=== PATIENT | female | born 1980 | race Caucasian/White ===

== ENCOUNTER → 2019-11-06 10:47 | Outpatient (CLI) | payer BC, SELFPAY ==
[2019-11-06 11:35] LABS: Basophils # 0.1 K/mm3 (0-0.2); Basophils % 0.7 % (0.1-2.0); Eosinophils # 0.2 K/mm3 (0.0-0.4); Eosinophils % 2.2 % (0.1-12.0); Hematocrit 41.1 % (37.0-47.0); Hemoglobin 13.5 g/dL (12.2-16.2); Lymphocytes # 3.1 K/mm3 (0.7-4.5); Lymphocytes % 29.1 % (10-50); Mean Platelet Volume 7.8 fl (7.4-10.4); Monocytes # 0.5 K/mm3 (0.1-1.0); Monocytes % 4.6 % (1.7-9.3); Neutrophils # 6.7 K/mm3 (1.8-7.8); Neutrophils % 63.3 % (37.0-80.0); Platelet Count 411 K/mm3 (142-424); Red Blood Count 4.37 M/mm3 (4.20-5.40); Red Cell Distribution Width 12.8 % (11.5-17.5); White Blood Count 10.6 K/mm3 (4.8-10.8)
[2019-11-06 11:52] LABS: Amphetamine/Metha Screen,Urine Negative ng/ml (<1000); Barbiturates Screen,Urine Negative ng/ml (<200)
[2019-11-06 11:53] LABS: Benzodiazepines Screen,Urine Negative ng/ml (<200)
[2019-11-06 11:54] LABS: Cannabinoid Screen,Urine Negative ng/ml (<50)
[2019-11-06 11:55] LABS: Cocaine Screen,Urine Negative ng/ml (<300); Methadone Screen,Urine Negative ng/ml (<300)
[2019-11-06 11:56] LABS: Opiate Screen,Urine Negative ng/ml (<300); Phencyclidine Screen,Urine Negative ng/ml (<25)
[2019-11-06 12:15] LABS: Alanine Aminotransferase 18 U/L (12-78); Albumin Level 4.9 g/dl (3.5-5.0); Albumin/Globulin Ratio 1.8 (1.1-1.8); Alkaline Phosphatase 56 U/L (38-126); Anion Gap 12.5 mEq/L (5-15); Aspartate Amino Transferase 28 U/L (14-36); Bilirubin,Total 0.3 mg/dl (0.2-1.3); Blood Urea Nitrogen 10 mg/dl (7-17); Carbon Dioxide 30 mmol/L (22.0-30.0); Chloride 102 mmol/L (98-107); Estimated Glomerular Filt Rate 138 ml/min (>60); GFR (African American) 167 ML/MIN (>60); Globulin 2.7 g/dL (1.3-3.2); Glucose 90 mg/dl (74-100); Potassium 4.5 mmoL/L (3.5-5.1); Sodium 140 mmol/L (136-145); Total Protein,Serum 7.6 g/dl (6.3-8.2)
[2019-11-06 12:26] LABS: Coronavirus 19 IgG Antibody Negative (Negative); Coronavirus 19 IgM Antibody Negative (Negative)
[2019-11-06 12:29] LABS: HCG Qualitative, Serum Negative (Negative)
== END ==
PROVIDERS: Visit Provider Obstetrics & Gynecology
DX: Z01.818 Encounter for other preprocedural examination (principal)
CPT/HCPCS: 36415; 80053; 80305; 84703; 85025; 86328

== ENCOUNTER 2019-11-09 06:59 | Inpatient (IN) | payer BC, SELFPAY ==
[2019-11-06 14:34] VITALS: BMI 22.1
[2019-11-09] VITALS (22 sets, daily range): BP systolic 98–143; BP diastolic 48–93; PULSE 64–94; RESP 16–20; TEMP 36.4–43; O2SAT 94–100
--- NOTE | 2019-11-09 09:35 | P.PN_ITS ---
[facility] Anesthesia Checklist - Patient Identification Patient Identification: Arm Band - Structural Data Admitted From: Home Planned Operative Procedure/s: Total Abdominal Hysterectomy Consent for Planned Operative Procedure(s) Verified: Yes Verified Documents: Surgical Consent, History and Physical - NPO Status Verified Time NPO: 00:00 - Additional verifications Anesthesia Reactions: No Hx Blood Transfusions: No Blood Transfusion Reaction: No - Airway Assessment C-Spine Mobility Assessed: Yes (mp2) TMJ Mobility Assessed: Yes Dentition: Good Dentition (upper dentures removed) - Neurological Assessment Level of Consciousness: Awake, Alert - Anesthesia Plan Anesthesia Risk discussed: Yes Anesthesia Plan: Verified ASA Class: II Anesthesia Type: General w/block (TAP block. Risks/benefits explained to pt preoperatively. Pt verbalizes understanding) [facility] History I have reviewed the patient's past medical history: Yes Medical History: Reports:: Cancer (skin) Denies:: Diabetes Mellitus Type 1, Diabetes Mellitus Type 2, Internal Pacemaker, MRSA, Seizures *Have you ever received a pneumonia vaccine?: No *Have you received a flu vaccine this season?: Yes Other Medical History: Denies: Blood Transfusion Reaction Anesthesia experience/problems:: nac Other Surgeries: Yes: , Hernia Repair, Other. No: Pacemaker Amputation: No Fractures: No - *Social History Last grade of school completed: Advanced degree Smoking Status: Current every day smoker Tobacco Type: cigarettes # Packs/Day (cigarettes): 1 Alcohol Intake: never Substance Use Type: denies use *Occupational Status:: employed Housing: house Household Members: spouse, family *Travel in the last 8 weeks: None Family Hx:: Cancer, Thyroid Disorder
--- NOTE | 2019-11-09 10:39 | HMH.PHAINT ---
HOME MEDICATION RECONCILIATION COMPLETED BY CALLING [facility].
--- NOTE | 2019-11-09 11:37 | HMH.ANESI ---
[facility] Anesthesia Record Part I Intake, IV Amount: 1,800 Estimated blood loss (mL): 150 Urine output (mL): 275 Blood Pressure: 126/84 SaO2: 94 Pulse Rate: 90 Respiratory Rate: 16 Temperature: 97.5 F Patient is:: Drowsy, Stable Stable to PACU at:: 11:20
--- NOTE | 2019-11-09 11:58 | HMH.OPNOTE ---
Date of procedure: 11/09/19 Pre-op Diagnosis:: heavy menstrual bleeding DUB pelvic pain ovarian cyst Post-op Diagnosis:: same Procedure performed:: CLARISA, RSO, HOOD Surgeon:: Alicia Rubio MD Model Maker(s):: Nissa Mccauley MRI ASSISTANT:: Tha Rosenberg Anesthesia: GETA Estimated blood loss (mL): 150 Operative findings:: dense pelvic adhesions, grossly normal ovaries bilaterally Operative note:: The patient was taken to the operating room and general anesthesia was administered without difficulty. She was prepped and draped in the supine position. A Pfannenstiel skin incision was made approximately 2 cm above the pubic symphysis with a scalpel and carried down to the underlying layer of fascia. The fascia was incised in the midline and extended laterally sharply. The rectus muscles were sharply dissected off the fascia and in the midline. The peritoneum was turned and sharply, with good visualization of the underlying structures. The peritoneal incision was extended bluntly. A survey of the patient's pelvis and abdomen revealed dense pelvic adhesions with the bladder adhesed correction up the anterior uterus. Both ovaries appeared grossly normal. At this time, the patient was placed in Trendelenburg and a Arcadio retractor was placed in the abdomen; the bowel was packed with moist laparotomy sponges. A double tooth tenaculum was placed on the uterine fundus and the uterus was elevated out of the pelvis. No fibroids or other visible uterine lesions were noted. The round ligaments were identified and transected and suture-ligated. The anterior lip of the broad ligament was dissected medially on both sides; bladder adhesions were dense and it took 20 minutes of sharp and blunt dissection to dissect the bladder off the uterus. The posterior leaf of the broad ligament was dissected until the ureters were able to be identified on either side and noted to be free of the forthcoming adnexal pedicles. Infundibulopelvic ligaments were doubly clamped transected and suture ligated on either side, with excellent hemostasis noted; the clamp on the patient's right was placed lateral to the ovary so that the ovary and fallopian tube could be removed, at patient request. The uterine arteries were skeletonized on either side, and were clamped, transected and suture ligated with excellent hemostasis. The bladder flap was further bluntly dissected off the lower uterine segment with excellent hemostasis and without injury to the bladder. The cardinal and uterosacral ligaments were clamped transected and suture ligated on both sides until the vaginal mucosa was entered. The vaginal incision was extended circumferentially with the Jorganson scissors; the uterus and cervix were removed abdominally and sent for pathology, along with the fallopian tubes. The vaginal cuff angles were closed 0 Vicryl [id number] sutures and were transfixed to the ipsilateral cardinal and uterosacral ligaments. The remainder of the vaginal cuff was closed with 0 Vicryl interrupted sutures. The pelvis was copiously irrigated with a solution of sterile water. The cuff was hemostatic. All pedicles were reexamined and remained hemostatic. All instruments were removed from the patient's abdomen. The peritoneum was closed with 2-0 Vicryl in a running fashion. The fascia was closed with 0 Vicryl in a running fashion. The skin was closed with rita. The patient tolerated the procedure well; sponge/lap/needle and instrument counts were correct ?2. She was taken to the recovery room awake in stable condition. Estimated blood loss: 150 cc. Condition: stable Disposition: PACU Specimens:: uterus, cervix, right fallopian tube and ovary Complications:: none
--- NOTE | 2019-11-09 12:15 | PC.NURSE ---
Report received from Nissa Musa RN in PACU at 1147, pt to department at 1155. Bed locked and in lowest position with side rails up x2, call light given to pt and instructed on use. at bedside at 1200, pt dozing but is c/o lower abdominal pain. RN returned to bedside at 1215 for VS check, pt sleeping soundly with resps even and unlabored. Will continue to monitor.
--- NOTE | 2019-11-09 12:37 | SUR.OPER ---
Procedure ended at 1103, patient received TAP block from anesthesia, left room at 1119, immediately after patient transferred to her bed. No complications.
--- NOTE | 2019-11-09 13:29 | P.CONPHA_ITS ---
[facility] Pharmacy VTE Monitoring - Patient Demographics Admission date: 11/09/19 Report Date: 11/09/19 Time: 13:29 Allergies/Adverse Reactions: Patient Allergies No Known Allergies Allergy (Verified 11/09/19 07:08) Height: 1.6 m Weight: 56.699 kg Patient Problems: Current Active Problems Pelvic adhesions (Acute) Bulky or enlarged uterus (Acute) History of tubal ligation (Acute) Previous section (Acute) Tobacco abuse (Acute) Ovarian cyst (Acute) Fibroid, uterine (Acute) Dyspareunia in female (Acute) Pelvic pain (Acute) Heavy menstrual bleeding (Acute) - VTE Risk Was VTE Risk Assessment Performed: Yes VTE Score: 2 VTE Risk Level: Very Low Risk Clinical Trial Participant: No - Prophylaxis VTE Prophylaxis Ordered?: Yes Types of VTE Prophylaxis: IPCS Knee High (postop) Location of Applied Device: Bilateral Lower Extremeties
[2019-11-09 14:28] LABS: Microscopic,Cath URINE MICROSCOPIC (MICROSCOPIC)
[2019-11-09 15:11] LABS: Appearance,Urine/Cath CLEAR (Clear); Bilirubin,Cath Negative (Negative); Blood, Urine/Cath TRACE-L (Negative); Color,Urine/Cath YELLOW (Yellow); Glucose,Urine/Cath (UA) Negative (Negative); Ketones,Urine/Cath Negative (Negative); Leukocyte Esterase,Cath Negative (Negative); Nitrate,Cath Negative (Negative); Protein,Urine/Cath Negative (Negative); Specific Gravity, Urine/Cath <= 1.005 (1.005-1.030); Urobilinogen,Cath 0.2 EU/dl (0.2)
--- NOTE | 2019-11-09 15:23 | PC.NURSE ---
Pt medicated with dilaudid 2mg IV at 1451 for c/o lower abdominal and lower back pain, jello also provided to pt at that time as requested and repositioned to left tilt for comfort. Pt reported increasing comfort from reposition and tolerated jello well. RN at bedside at 1521 for pain reassessment, pt sleeping soundly with resps even and unlabored, at bedside.
[2019-11-09 15:25] LABS: Squamous Epithelial Ur./Cath Occasional #/hpf (0-5); WBC,Urine/Cath Occasional #/hpf (0-3)
--- NOTE | 2019-11-09 16:57 | PC.NURSE ---
RN reassessment completed at 1645. Pt is S/P CLARISA with RSO, has rested in intervals throughout the shift. Pt c/o gas pain at this time, spoke with Dr. Rubio on the telephone and gave simethicone 160 mg PO as ordered. Abd soft and mildly tender with BS active in all quads. LTV dressing with scant amount of serosang drainage, no change from initial assessment. F/C patent and draining clear, yellow urine at bedside. Approx 250 ml of UOP noted at this time. Pt reports tolerating clear liquid diet well without any nausea. Pt has received PRN pain medication x1 since being in the department and was asleep at time of pain reassessment, reports at this time that medication is helping. IV patent and infusing without difficulty. No vaginal bleeding noted. at bedside for support, no needs/concerns voiced.
[2019-11-10] VITALS (8 sets, daily range): BP systolic 91–130; BP diastolic 41–86; PULSE 63–89; RESP 18; TEMP 36.4–37.2; O2SAT 95–98
--- NOTE | 2019-11-10 04:56 | PC.NURSE ---
Reassessment completed. Heart at RRR, Lungs CTA. BS present x4 quadrants. No edema noted. Dressing noted to have small amount of drainage. Dressing removed, site cleansed with 1/2 sterile water, 1/2 peroxide solution. [place] remain intact, site appears WNL. New telfa and tegaderm in place. Pt. reports pain at 8/10, 2MG dilaudid given see [employer] EMAR. Pt. tolerated well. F/C emptied, noted to have 1500ml of clear yellow urine. Pt. denies passing flatus. Jello provided per pt. request. Pt. denies further needs, will continue to monitor.
[2019-11-10 05:42] LABS: Hemoglobin 8.8 g/dL (12.2-16.2)
[2019-11-10 05:44] LABS: Chloride 104 mmol/L (98-107); Potassium 3.7 mmoL/L (3.5-5.1); Sodium 135 mmol/L (136-145)
[2019-11-10 05:47] LABS: Blood Urea Nitrogen 5 mg/dl (7-17); Creatinine Clearance Estimated 171 mL/min (50-200); Estimated Glomerular Filt Rate 179 ml/min (>60); GFR (African American) 216 ML/MIN (>60)
[2019-11-10 05:48] LABS: Anion Gap 7.7 mEq/L (5-15); Calcium 8.4 mg/dl (8.4-10.2); Carbon Dioxide 27 mmol/L (22.0-30.0); Glucose 147 mg/dl (74-100)
--- NOTE | 2019-11-10 05:59 | PC.NURSE ---
Spoke with Dr. 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
--- NOTE | 2019-11-10 07:20 | PC.NURSE ---
ASSESSMENT PERFORMED AT THIS TIME. PATIENT IS A/O X4. WU CATH STILL PRESENT, WILL REMOVE LATER THIS AM. SCUDS BLE. IV INFUSING WITHOUT DIFFICULTY. MEDICATED PER MAR FOR PAIN. NO CURRENT NEEDS VOICED TO NURSE.
--- NOTE | 2019-11-10 08:20 | PC.NURSE ---
PATIENT SITTING UP EATING BREAKFAST. STATES SHE WILL CALL OUT WHEN SHE IS DONE SO WE CAN REMOVE WU. NO CURRENT NEEDS. AT BEDSIDE
--- NOTE | 2019-11-10 08:41 | PC.NURSE ---
AT BEDSIDE. REPORT GIVEN. ORDERS TO START 5MG-10MG PO OXYCODONE EVERY 4 HOURS PRN. ORDERS R/V
--- NOTE | 2019-11-10 09:30 | PC.NURSE ---
dressing change performed at this time. education provided. pt tolerated well. small amount of serosang. drainage more toward the left side. rita intact and no redness. sterile telfa/tegaderm reapplied.
--- NOTE | 2019-11-10 09:42 | P.PN_ITS ---
[facility] Anesthesia Record Part II Discharge Time: 11:50 Destination: Obstetric PACU nurse assessment reviewed?: Yes Patient Condition:: Good Anesthesia Complications:: None Swallowing reflex intact?: Yes Cyanosis?: No Blood Pressure: 130/86 Pulse Rate: 89 Temperature: 97.5 F Mental Status: Alert & Oriented Pain level:: 0 Nausea and/or vomitting:: None Intake, IV Amount: 0
--- NOTE | 2019-11-10 10:42 | PC.NURSE ---
patient able to urinate. States pain is a little better, reports gas pains. will re-check patients pain in 5-10 mins. at bedside.
--- NOTE | 2019-11-10 10:56 | PC.NURSE ---
PATIENT CRYING IN PAIN. STATES HURTS WHEN SHE BREATHES. WILL GIVE IV PAIN MEDS PER ORDER.
--- NOTE | 2019-11-10 12:15 | PC.NURSE ---
SPOKE WITH DR. HUI ABOUT PATIENTS PAIN AND REQUEST FOR SUPPOSITORY. MD GAVE ORDERS FOR GLYCERIN SUPP, AND DILAUDID PO 2MG EVERY 3 HOURS PRN. ALL ORDERS R/V
--- NOTE | 2019-11-10 12:20 | PC.NURSE ---
LUNCH TRAY GIVEN. TOLD PATIENT AFTER SHE ATE WE WOULD INSERT SUPP. PATIENT AGREEABLE.
--- NOTE | 2019-11-10 12:56 | PC.NURSE ---
meds given per order. pt request to administer supp. herself. pt education provided.
--- NOTE | 2019-11-10 13:22 | P.PN_ITS ---
Internal Medicine - PN: Subj *Date: 11/10/19 *Time: 13:22 Interval history: POD #1 CLARISA, RSO, HOOD no unusual complaints catheter still in place with no voiding trial yet tolerating po liquids pain control sufficient Exam Vital signs and Labs for Last 24 Hours: Temp Pulse Resp BP Pulse Ox 98.3 F 63 18 100/57 L 96 11/10/19 12:00 11/10/19 12:00 11/10/19 12:00 11/10/19 12:00 11/10/19 12:00 Laboratory Results - last 24 hr 11/09/19 08:12: Urine Color Yellow, Urine Appearance Clear, Urine pH 7.0, Ur Specific [place] <= 1.005, Urine Protein Negative, Urine Glucose (UA) Negative, Urine Ketones Negative, Urine Blood Trace-l, Urine Nitrate Negative, Urine Bilirubin Negative, Urine Urobilinogen 0.2, Ur Leukocyte Esterase Negative, Urine WBC Occasional, Ur Squamous Epith Cells Occasional 11/10/19 05:34: Hgb 8.8 L, Hct 26.0 L 11/10/19 05:34: Sodium 135 L, Potassium 3.7, Chloride 104, Carbon Dioxide 27, Anion Gap 7.7, BUN 5 L, Creatinine 0.40 L, Estimated Creat Clear 171, Estimated GFR 179, Est GFR ( Amer) 216, Glucose 147 H, Calcium 8.4 I & O for Last 24 hours: Intake & Output 11/08/19 11/09/19 11/10/19 11/11/19 11:59 11:59 11:59 11:59 Intake Total 1800 / 1800 2481 / 2481 Output Total 275 / 275 2550 / 2550 Balance 1525 / 1525 -69 / -69 Narrative: CONSTITUTIONAL: no acute distress HEENT: mucous membranes moist PULMONARY: breathing unlabored without audible wheezes CV: no tachycardia or visible JVD; normal LE peripheral pulses ABD: soft, ND; appropriately tender but no rebound/guarding SKIN: incision well approximated with no drainage, erythema or induration EXT: no edema LEs NEURO: alert/oriented, no altered mental status PSYCH: appropriate mood and demeanor without anxiety/depression Assessment and Plan (1) S/P hysterectomy Current visit: Yes Status: Acute Category: Surgical Code(s): Z90.710 - Acquired absence of both cervix and uterus - Assessment and plan all Dx Assessment and Plan for all problems:: POD #1 Routine postop care Feso4 for anemia possible discharge home tomorrow
--- NOTE | 2019-11-10 15:45 | PC.NURSE ---
WENT IN TO PERFORM REASSESSMENT. PATIENT IS GETTING UP TO BATHROOM, WILL RETURN.
--- NOTE | 2019-11-10 16:00 | PC.NURSE ---
RN PERFORMED REASSESSMENT AT THIS TIME. A/OX4. REPORTS PAIN A 6/10- WILL MEDICATE WHEN TIME. PASSING GAS. BOWEL SOUNDS ACTIVE X4 AND LUNGS REMAIN CTA. VITALS WNL. IV INFUSING WITHOUT DIFFICULTY. SCANT VAGINAL BLEEDING. CHANGED LOW TRANSVERSE DRESSING- SMALL AMOUNT OF SEROSANG DRAINAGE NOTED TO RIGHT SIDE OF INCISION. NO HARDNESS, REDNESS NOTED. ABD SOFT AND TENDER. PULSES 2+AND CAP REFILL <3 SECS. PT REPORTS WANTING TO HAVE A BOWEL MOVEMENT. NO DISTRESS NOTED. INFANT PINK/DRY/WARM. WILL CONTINUE TO MONITOR CLOSELY. CALL LIGHT WITHIN REACH
--- NOTE | 2019-11-10 17:29 | PC.NURSE ---
WENT IN TO REASSESS PAIN. PATIENT RESTING IN BED, STILL RATING PAIN A 5/10. WILL CONTINUE TO MONITOR. NO DISTRESS NOTED.
--- NOTE | 2019-11-10 18:45 | PC.NURSE ---
IV INFILTRATED AND PT REPORTED PAIN. IV D/C AT THIS TIME. PT REQUESTING NOT HAVING ANOTHER UNLESS NEEDED.
[2019-11-11 02:00] VITALS: BP 127/82; PULSE 59; RESP 17; TEMP 37.3; O2SAT 95
--- NOTE | 2019-11-11 02:35 | PC.NURSE ---
Dressing 2/3 saturated with new sero/sang drainage. Incision cleansed with 1/2 strength peroxide. New telfa / tegaderm dressing applied.. Incision well approximated with rita intact. No s/s of infection. No bruising. Tolerated well. Educated on incision care and s/s to look for once discharged home. V/U.
--- NOTE | 2019-11-11 05:20 | PC.NURSE ---
Pt has rested well throughout the night. Ambulating to bathroom and around room w/o difficultly. Reminded pt to splint with abdominal pillow. No edema noted. Lungs clear throughout. Hypoactive bs x4 quads. Tolerating po's well. Dressing to abdomen remains CDI.
[2019-11-11 08:00] VITALS: BP 140/77; PULSE 65; RESP 18; TEMP 36.6; O2SAT 97
--- NOTE | 2019-11-11 10:29 | P.DS_ITS ---
General - General Admission date:: 11/09/19 Discharge date: 11/11/19 Hospital Course Hospital Course: S/P CLARISA, RSO, HOOD Postop course uneventful Tolerating regular diet, ambulating and voiding without difficulty Small flatus but normal BS; patient has h/o chronic constipation Desires discharge home today Rhogam Administration: Not Indicated Objective Vital signs: Temp Pulse Resp BP Pulse Ox 97.8 F 65 18 140/77 97 11/11/19 08:00 11/11/19 08:00 11/11/19 08:00 11/11/19 08:00 11/11/19 08:00 Narrative: CONSTITUTIONAL: no acute distress HEENT: mucous membranes moist PULMONARY: breathing unlabored without audible wheezes CV: no tachycardia or visible JVD; normal LE peripheral pulses ABD: soft, ND; appropriately tender but no rebound/guarding SKIN: incision well approximated with no drainage, erythema or induration EXT: no edema LEs NEURO: alert/oriented, no altered mental status PSYCH: appropriate mood and demeanor without anxiety/depression DS: Diagnosis - Discharge Diagnosis (1) S/P hysterectomy Status: Acute Discharge Plan - Patient Discharge Instructions ACTIVITY: Continue current activity DIET: regular diet - Follow up Plan Disposition: Home, Self-[facility] Medications: Home Medications Medication Instructions Recorded Confirmed Type duloxetine 30 mg capsule,delayed 30 mg PO DIRECTED 09/28/19 11/09/19 History release oxybutynin chloride 10 mg 10 mg PO DAILY 09/28/19 11/09/19 History tablet,extended release 24 hr Hydromorphone HCl [Dilaudid 2mg 2 mg PO Q4-6H PRN #30 tab 11/11/19 Rx tablet] Ketorolac Tromethamine [Toradol 10 mg PO Q6H #30 tab 11/11/19 Rx 10mg tablet] Prescriptions/Medication Reconciliation: New Hydromorphone HCl [Dilaudid 2mg tablet] 2 mg PO Q4-6H PRN #30 tab PRN Reason: Moderate To Severe Pain Sennosides/Docusate Sodium [Senokot-S Tablet] 1 tab PO BIDP PRN tablet PRN Reason: Constipation Ketorolac Tromethamine [Toradol 10mg tablet] 10 mg PO Q6H #30 tab Continued oxybutynin chloride 10 mg tablet,extended release 24 hr 10 mg PO DAILY duloxetine 30 mg capsule,delayed release 30 mg PO DIRECTED - Problem Reconciliation Problems Reviewed?: Yes
--- NOTE | 2019-11-14 11:39 | PC.NURSE ---
1040- PATIENT CAME IN FOR STAPLE REMOVAL PER DR. HUI ORDER. CLEANSED INCISION WELL- NOTED YELLOW DRAINAGE COMING FROM INCISION AND REDNESS SURROUNDING A FEW OF THE NAYELY TO THE LEFT. PT REPORTS NO FEVER 1045- CALLED SENIOR CLINICAL CONSULTANT MD (DR. ALVARADO), GAVE REPORT ON INCISION TO HIM- ORDERS TO CLEANSE REALLY WELL AND REMOVE NAYELY. 1055- NAYELY REMOVED AND MASTISOL AND STERI-STRIPS APPLIED. PT TOLERATED WELL. EDUCATION PROVIDED ON SURGICAL SITE INFECTION. V/U 1100 PT OFF UNIT WITH .
== END 2019-11-11 12:20 | disposition home or self-care (01) | DRG 743 ==
LOC: OB 11-10 06:30 → 2ND 11-10 12:05
PROVIDERS: Admitting Provider Obstetrics & Gynecology; PCP Nurse Practitioner; Visit Provider Obstetrics & Gynecology
PROC: 0UT90ZZ Resection of Uterus, Open Approach (ICD-10-PCS; CPT 58150; principal; 2019-11-09 08:30)
DX: N92.0 Excessive and frequent menstruation with regular cycle (principal); N94.10 Unspecified dyspareunia; R10.2 Pelvic and perineal pain; N73.6 Female pelvic peritoneal adhesions (postinfective); N83.201 Unspecified ovarian cyst, right side
CPT/HCPCS: 58150; 49999; 36415; 80048; 80053; 80305; 81001; 84703; 85014; 85018; 85025; 86328; 96374; J0670; J2405; J2710

== ENCOUNTER 2020-01-10 03:25 | Inpatient (IN) | payer BC, SELFPAY ==
[2020-01-10] VITALS (33 sets, daily range): BP systolic 90–130; BP diastolic 43–85; PULSE 71–93; RESP 12–19; TEMP 36.4–43; O2SAT 90–99; BMI 21.2
--- NOTE | 2020-01-10 03:30 | PC.NURSE ---
water based lubrication applied to protruding part. wet 4x4's applied.
--- NOTE | 2020-01-10 03:48 | CT_ITS ---
Procedure: CT ABDOMEN PELVIS W CON Referring Doctor: Thanh Will Patient Age:39Y CLINICAL INDICATION: prolapsed internal body, elevated white count. Smoker Head hysterectomy on November 08. Also prior hernia repair and history of skin cancer COMPARISON: No exams were available for comparison TECHNIQUE: Oral contrast:. 30 mL of diluted Gastroview enteric contrast utilized IV contrast: 75 cc of Isovue 370 IV contrast utilized Helical the axial images obtained with sagittal and coronal reformats. All CT scans at the facility use one or more dose reduction, viz: automated exposure control, ma/kV adjustment per patient size (including targeted exams where dose is matched to indication, i.e. head), or iterative reconstruction technique. FINDINGS: Lower thorax: No acute finding Bilateral breast implants. ABDOMEN//PELVIS/GI TRACT: PERITONEUM: .Free intraperitoneal air-minimal free intraperitoneal air superiorly overlying anterior margin liver, with a few dots of free air region of ehsan hepatis, fleming pouch along anterior aspect the peritoneum a midline; as well as a few dots elsewhere.-this implies ruptured viscus associated with other findings as discussed below.. Moderate freefluid at the pelvis. Some areas are free fluid appear slightly hyperdense particularly inferiorly and could reflect some recent bleeding associated with a limited bowel perforation. Do not see a well organized fluid collection or discrete abscess. PELVIS: Prior hysterectomy but extending inferior to the perineum there is a large pelvic floor defect/hernia with prolapse of bowel into this area. It contains twisted dilated small-bowel loop which results in a relatively high-grade mid small bowel obstruction. Probable prominent left ovary 3.6 cm with and containing a near 3 cm cyst at left ovary. A discrete right ovary not identified GI tract: -- Oral contrast was administered but due to the ileus has moved slowly, with majority of oral contrast remaining within stomach of and a slowly progressing into the proximal small bowel reflecting the distal bowel obstruction and ileus Stomach appears satisfactory no focal wall thickening no obvious ulcer by CT at stomach nor at duodenal loop. There is increased fluid, moderate fluid distention and air-fluid levels throughout proximal and mid small Bowel a most evident at pelvis. Reflecting the SBO. Distal most small bowel and terminal ileum appears normal. No evidence of appendicitis. Large bowel. [id number] solid stool throughout the colon most evident at right colon and transverse colon.-The colon is not decompressed suggesting the obstruction is incomplete or early ---- Liver: Areas of fatty changes the liver a particularly noting area towards anterior liver adjacent to falciform ligament region. . Tiny near 5 mm low-density area within right lobe of liver, axial image 21 is too small to characterize Gallbladder: . generous length GB upper normal volume. No wall thickening d. No radio opaque stones. Common duct normal Pancreas: Unremarkable no masses nor peripancreatic fluid collections. Spleen: Modest size unremarkable Adrenals: unremarkable -- tract -------- Kidneys/ureters: Unremarkable. Urinary bladder moderately distended no calculi nor wall thickening Lymph nodes: No enlarged lymph nodes apparent. Vasculature: No evidence of abdominal aortic aneurysm. No retroperitoneal hemorrhage evident. Bones: No acute fracture IMPRESSION: 1. Status post hysterectomy with prominent pelvic floor prolapse. With prominent pelvic floor hernia here containing twisted dilated small-bowel loop resulting in her Small Bowel Obstruction. This point with of
--- NOTE | 2020-01-10 03:50 | PC.NURSE ---
pt completed po contrast
[2020-01-10 04:09] LABS: Basophils % 0.1 % (0.1-2.0); Eosinophils # 0.2 K/mm3 (0.0-0.4); Eosinophils % 0.9 % (0.1-12.0); Hematocrit 40.8 % (37.0-47.0); Hemoglobin 13.7 g/dL (12.2-16.2); Lymphocytes # 1.8 K/mm3 (0.7-4.5); Lymphocytes % 7.8 % (10-50); Mean Corpuscular HGB Conc 33.5 g/dL (31.8-35.4); Mean Corpuscular Hemoglobin 30.6 pg (27.0-31.2); Mean Corpuscular Volume 91.4 fl (81-99); Mean Platelet Volume 8.3 fl (7.4-10.4); Monocytes # 0.6 K/mm3 (0.1-1.0); Monocytes % 2.7 % (1.7-9.3); Neutrophils # 20.8 K/mm3 (1.8-7.8); Neutrophils % 88.5 % (37.0-80.0); Platelet Count 383 K/mm3 (142-424); Red Blood Count 4.46 M/mm3 (4.20-5.40)
[2020-01-10 04:17] LABS: White Blood Count 23.5 K/mm3 (4.8-10.8)
[2020-01-10 04:18] LABS: MANUAL DIFFERENTIAL MANUAL DIFFERENTIAL (MANUAL DIFF)
[2020-01-10 04:20] LABS: Alanine Aminotransferase 12 U/L (12-78); Albumin Level 4.6 g/dl (3.5-5.0); Albumin/Globulin Ratio 1.8 (1.1-1.8); Alkaline Phosphatase 70 U/L (38-126); Anion Gap 11.9 mEq/L (5-15); Aspartate Amino Transferase 30 U/L (14-36); Bilirubin,Total 0.4 mg/dl (0.2-1.3); Blood Urea Nitrogen 16 mg/dl (7-17); Calcium 9.5 mg/dl (8.4-10.2); Carbon Dioxide 26 mmol/L (22.0-30.0); Chloride 102 mmol/L (98-107); Creatinine Clearance Estimated 109 mL/min (50-200); Estimated Glomerular Filt Rate 112 ml/min (>60); GFR (African American) 135 ML/MIN (>60); Globulin 2.6 g/dL (1.3-3.2); Glucose 113 mg/dl (74-100); Potassium 3.9 mmoL/L (3.5-5.1); Sodium 136 mmol/L (136-145); Total Protein,Serum 7.2 g/dl (6.3-8.2)
[2020-01-10 04:21] LABS: Lactic Acid 1.1 mmol/L (0.7-2.1)
[2020-01-10 04:25] LABS: C-Reactive Protein 5.5 mg/L (0-4)
[2020-01-10 04:28] LABS: Lymphocytes % 10 % (10-50); Monocytes % 2 % (2-9); Neutrophils % 76 % (42-76); Platelet Estimate Normal; RBC Morphology Normal; Total Cells Counted 100
--- NOTE | 2020-01-10 04:46 | PC.NURSE ---
PT to RAD
--- NOTE | 2020-01-10 04:49 | HMH.EDNVD ---
ED Disposition Clinical Impression: Pneumoperitoneum Dehiscence of vaginal cuff Qualifiers: Encounter type: initial encounter Qualified Code(s): T81.31XA - Disruption of external operation (surgical) wound, not elsewhere classified, initial encounter Disposition: Admitted As Inpatient Condition on Discharge: Serious Instructions: DI for Urinary Tract Infection (UTI), DI for Urinary Tract Infection in Children Referrals: Wandy Kohler [Primary Care Provider] - - Critical Care Critical Care Time: No Attestation: On 01/10/20, the high probability of a clinically significant, sudden or life threatening deterioration of the following system(s) required my full and direct attention, intervention and personal management. The time I documented below is in addition to time spent performing reported procedures but includes the following listed in this critical care notation. Medical Decision Making - Medical Records Medical records reviewed: Yes: I reviewed the patient's medical records. - Wilbur Inquiry Pt receiving controlled substance: No Vital Signs: 01/10/20 03:25 01/10/20 04:12 Temperature 99.4 F Temperature Source Oral Pulse Rate [Left Radial] 82 79 Respiratory Rate 16 14 Blood Pressure [Right Arm] 128/85 125/55 L Blood Pressure Mean [Right Arm] 99 78 Blood Pressure Source [Right Arm] Automatic Cuff Automatic Cuff Blood Pressure Position [Right Arm] Sitting Sitting 02 Sat by Pulse Oximetry 98 98 Oxygen Delivery Method Room Air - Lab Data Lab results reviewed: Yes: I reviewed the patient's lab results. Lab Results 01/10/20 03:55: WBC 23.5 H*, RBC 4.46, Hgb 13.7, Hct 40.8, MCV 91.4, MCH 30.6, MCHC 33.5, RDW 13.0, Plt Count 383, MPV 8.3, Neut % (Auto) 88.5 H, Lymph % (Auto) 7.8 L, [place] % (Auto) 2.7, Eos % (Auto) 0.9, Baso % (Auto) 0.1, Neut # (Auto) 20.8 H, Lymph # (Auto) 1.8, [place] # (Auto) 0.6, Eos # (Auto) 0.2, Baso # (Auto) 0.0, Total Counted 100, Neutrophils % (Manual) 76, Band Neutrophils % 12.0 H, Lymphocytes % (Manual) 10, Monocytes % (Manual) 2, Platelet Estimate Normal, RBC Morphology Normal, ESR 20 01/10/20 03:55: Sodium 136, Potassium 3.9, Chloride 102, Carbon Dioxide 26, Anion Gap 11.9, BUN 16, Creatinine 0.60, Estimated Creat Clear 109, Estimated GFR 112, Est GFR ( Amer) 135, Glucose 113 H, Calcium 9.5, Total Bilirubin 0.4, AST 30, ALT 12, Alkaline Phosphatase 70, C-Reactive Protein 5.5 H, Total Protein 7.2, Albumin 4.6, Globulin 2.6, Albumin/Globulin Ratio 1.8 01/10/20 03:55: Lactate 1.1 Result diagrams: 01/10/20 03:55 01/10/20 03:55 Orders (Tests/Meds): ED MEDICATIONS Generic Name Dose Route Start Last Admin Trade Name Freq PRN Reason Stop Dose Admin Sodium Chloride 1,000 mls @ 999 mls/hr 01/10/20 04:15 01/10/20 04:38 Sod Chlor 0.9% 1000ml Bag IV 01/10/20 05:15 999 mls/hr .Q1H1M MUMTAZ Administration Discontinued Medications Generic Name Dose Route Start Last Admin Trade Name Freq PRN Reason Stop Dose Admin Iopamidol 75 ml 01/10/20 05:13 01/10/20 05:14 Iopamidol-370 (76%);100ml Bottle IV 01/10/20 05:14 75 ml ONCE ONE Administration Morphine Sulfate 4 mg 01/10/20 04:13 01/10/20 04:38 Morphine 4mg/Ml Syringe IV 01/10/20 04:14 4 mg ONCE ONE Administration Ondansetron HCl 4 mg 01/10/20 04:13 01/10/20 04:38 Ondansetron 4mg/2ml Vial IV 01/10/20 04:14 4 mg ONCE ONE Administration Sodium Chloride 10 ml 01/10/20 05:13 01/10/20 05:14 Sodium Chloride 0.9% 10ml Syr (Rad Only) IV 01/10/20 05:14 10 ml ONCE ONE Administration ORDERS Category Date Time Status CT abdomen pelvis w con Stat Cat Scan 01/10/20 03:48 Taken Blood Culture Stat Micro 01/10/20 03:54 Received - CT Data CT Scan: Abdomen, Pelvis Time Received: 05:[address] Reviewed: Yes: I have viewed the radiologist's interpretation Preliminary Findings: Abnormal (see report ) - Physician Consults Physician Consulted: ksenia Reason -: Pt condition Add
--- NOTE | 2020-01-10 04:51 | PC.NURSE ---
speaking with Dr. Pulido
--- NOTE | 2020-01-10 04:51 | PC.NURSE ---
speaking with Dr. Dumont
[2020-01-10 04:55] LABS: Erythrocyte Sedimentation Rate 20 mm/hr (0-20)
--- NOTE | 2020-01-10 05:09 | PC.NURSE ---
pt back from CT
--- NOTE | 2020-01-10 05:29 | PC.NURSE ---
dr mccormack at bedside
--- NOTE | 2020-01-10 05:36 | PC.NURSE ---
dr nathan paged and return call. notified of need for assist
--- NOTE | 2020-01-10 05:36 | PC.NURSE ---
frankie miranda, powerhouse mechanic notified of need for OR staff.
--- NOTE | 2020-01-10 05:37 | PC.NURSE ---
vrad report received.
--- NOTE | 2020-01-10 05:49 | PC.NURSE ---
[id number]-OR team paged [phone] Jarret Diggs CRNA returned call. [phone] Anna Kim RN returned call. [phone] Elena Gray returned call.
--- NOTE | 2020-01-10 05:51 | HMH.HP ---
*Admission Date: 01/10/20 *Chief complaint: Vaginal vault dehiscence with bowel prolapse *History of present illness: She is a 39-year-old lady who underwent a total abdominal hysterectomy and unilateral salpingo-oophorectomy on November 08 of this year. She was recently seen in the office and had been healing well. She had intercourse a couple of days ago and then last night had intercourse and noticed a small amount of bleeding. She then felt gas and pressure and went to have a bowel movement and noticed a bulge in the vagina. She had a considerable amount of pain and nausea at that time. She has what appears to be small bowel prolapsing through the vagina the CT scan shows that she has a small bowel obstruction as result of twisting of the bowel. [facility] History I have reviewed the patient's past medical history: Yes Medical History: Reports:: Cancer Denies:: Diabetes Mellitus Type 1, Diabetes Mellitus Type 2, Internal Pacemaker, MRSA, Seizures *Have you ever received a pneumonia vaccine?: No *Have you received a flu vaccine this season?: No Other Medical History: Denies: Blood Transfusion Reaction Other Surgeries: Yes: , Hernia Repair, Hysterectomy-Total, Other. No: Pacemaker Amputation: No Fractures: No - *Social History Smoking Status: Current every day smoker Tobacco Type: cigarettes # Packs/Day (cigarettes): 1 Alcohol Intake: never Substance Use Type: denies use *Occupational Status:: employed Housing: house Household Members: family *Travel in the last 8 weeks: None Family Hx:: Cancer, Thyroid Disorder Review of Systems - Review of Systems Review of systems:: pertinent systems reviewed and negative unless documented below - *Neurologic Denies seizure-like activity Meds Home Medications Medication Instructions Recorded Confirmed Type duloxetine 30 mg capsule,delayed 60 mg PO QHS cap 01/04/20 01/10/20 History release Allergies Allergy/AdvReac Type Severity Reaction Status Date / Time No Known Allergies Allergy Verified 01/04/20 11:36 Exam Vital signs and Labs for Last 24 Hours: Temp Pulse Resp BP Pulse Ox 99.4 F 80 17 118/74 98 01/10/20 03:25 01/10/20 05:47 01/10/20 05:47 01/10/20 05:47 01/10/20 05:47 Laboratory Results - last 24 hr 01/10/20 03:55: WBC 23.5 H*, RBC 4.46, Hgb 13.7, Hct 40.8, MCV 91.4, MCH 30.6, MCHC 33.5, RDW 13.0, Plt Count 383, MPV 8.3, Neut % (Auto) 88.5 H, Lymph % (Auto) 7.8 L, [place] % (Auto) 2.7, Eos % (Auto) 0.9, Baso % (Auto) 0.1, Neut # (Auto) 20.8 H, Lymph # (Auto) 1.8, [place] # (Auto) 0.6, Eos # (Auto) 0.2, Baso # (Auto) 0.0, Total Counted 100, Neutrophils % (Manual) 76, Band Neutrophils % 12.0 H, Lymphocytes % (Manual) 10, Monocytes % (Manual) 2, Platelet Estimate Normal, RBC Morphology Normal, ESR 20 01/10/20 03:55: Sodium 136, Potassium 3.9, Chloride 102, Carbon Dioxide 26, Anion Gap 11.9, BUN 16, Creatinine 0.60, Estimated Creat Clear 109, Estimated GFR 112, Est GFR ( Amer) 135, Glucose 113 H, Calcium 9.5, Total Bilirubin 0.4, AST 30, ALT 12, Alkaline Phosphatase 70, C-Reactive Protein 5.5 H, Total Protein 7.2, Albumin 4.6, Globulin 2.6, Albumin/Globulin Ratio 1.8 01/10/20 03:55: Lactate 1.1 I & O for Last 24 hours: Intake & Output 01/07/20 01/08/20 01/09/20 01/10/20 11:59 11:59 11:59 11:59 Weight 120 lb - Constitutional no acute distress - *Routine HEENT Exam Head: Present: normocephalic Eye: Present: EOMI, PERRL ENT: Present: mucous membranes moist - *Routine Neck Exam Present: supple, full ROM - *Routine Respiratory Exam Absent: accessory muscle use (good air entry bilaterally), wheezes, crackles - *Routine Cardiovascular Exam Present: RRR. Absent: murmur - *Routine Abdominal Exam Present: soft, normoactive bowel sounds. Absent: tenderness, rebound, guarding, mass - *Routine Rectal Exam Patient deferred: visual exam, digital exam - *Routine Exam Patient deferred: external exam, groin exam
[2020-01-10 06:13] LABS: Coronavirus 19 IgG Antibody Negative (Negative); Coronavirus 19 IgM Antibody Negative (Negative)
--- NOTE | 2020-01-10 06:21 | PC.NURSE ---
surgery at bedside
--- NOTE | 2020-01-10 06:25 | PC.NURSE ---
pt to surgery at this time. notified registration to change status. spoke with austin.
--- NOTE | 2020-01-10 06:42 | HMH.ANESCL ---
[facility] Anesthesia Checklist - Patient Identification Patient Identification: Arm Band, Verbal (Name & ) - Structural Data Admitted From: Emergency Dept Planned Operative Procedure/s: Repair of vaginal wall dehiscense Consent for Planned Operative Procedure(s) Verified: Yes Verified Documents: Surgical Consent, History and Physical - NPO Status Verified Time NPO: 02:00 - Chart Verification Results Verified: CBC, BMP - Additional verifications Patient : No Anesthesia Reactions: No Hx Blood Transfusions: No Blood Transfusion Reaction: No - Airway Assessment C-Spine Mobility Assessed: Yes (Full neck ROM, MP 2, TMD 3) TMJ Mobility Assessed: Yes Dentition: Dentures-good fit (Upper, missing lower teeth) - Neurological Assessment Level of Consciousness: Awake, Alert, Appropriate, Follows Commands Hx Seizures: No Numbness or tingling in extremities: No - Anesthesia Plan Anesthesia Risk discussed: Yes Anesthesia Plan: Verified ASA Class: II (E) Anesthesia Type: General [facility] History I have reviewed the patient's past medical history: Yes Medical History: Reports:: Cancer Denies:: Diabetes Mellitus Type 1, Diabetes Mellitus Type 2, Internal Pacemaker, MRSA, Seizures *Have you ever received a pneumonia vaccine?: No *Have you received a flu vaccine this season?: No Other Medical History: Denies: Blood Transfusion Reaction Anesthesia experience/problems:: none Other Surgeries: Yes: , Hernia Repair, Hysterectomy-Total, Other. No: Pacemaker Amputation: No Fractures: No - *Social History Smoking Status: Current every day smoker Tobacco Type: cigarettes # Packs/Day (cigarettes): 1 Alcohol Intake: never Substance Use Type: denies use *Occupational Status:: employed Housing: house Household Members: family *Travel in the last 8 weeks: None Family Hx:: Cancer, Thyroid Disorder
--- NOTE | 2020-01-10 07:44 | HMH.OPNOTE ---
Date of procedure: 01/10/20 Pre-op Diagnosis:: Vaginal vault dehiscence, prolapse of small bowel Post-op Diagnosis:: Vaginal vault dehiscence, prolapse of small bowel Procedure performed:: Exploratory laparotomy, reduction of small bowel prolapse, repair of vaginal vault dehiscence Surgeon:: Byron Pulido MD Sound Editor(s):: Dr. Dumont PLATFORM WORKER:: Jarret Diggs Anesthesia: GETA Estimated blood loss (mL): 50 Clinical Note:: She is a 39-year-old lady who had a total abdominal hysterectomy and right salpingo-oophorectomy through a Pfannenstiel incision on November 08 of this year. She had intercourse the night prior to admission and was having some discomfort after intercourse. She then went to have a bowel movement and felt something bulging through the vagina. On arrival here it was noted that she had small bowel protruding through the vagina. CT scan had also confirmed this. After having discussed the risk and benefits we elected to perform an exploratory laparotomy for reduction of the bowel herniation and repair of the vaginal vault. Operative findings:: She had a fist size prolapse of small bowel through the vagina. The top of the vagina itself was completely dehisced. The left ovary and tube appeared normal. The right tube and ovary had previously been removed. The bowel was run and inspected by Dr. Dumont and we both agree that the bowel was viable and there was no evidence of any lack of blood supply to any areas of the bowel. Operative note:: She was taken to the operating room where general anesthesia was found be adequate. She is prepped and draped in normal sterile fashion in the supine position. A Pfannenstiel skin incision was made through the old scar and carried through to the underlying layer of fascia with cautery. The fascia was opened midline with cautery and extended laterally using cautery. Jh clamps were applied the superior aspect of the fascial incision which was tented up and the underlying rectus muscles were dissected off using cautery. Jh clamps were then applied the inferior aspect of the fascial incision and once again the rectus muscle dissected off using cautery. The rectus muscles were then midline and the peritoneum was opened with cautery. This incision was then extended superiorly with cautery with good visualization of the bladder inferiorly. An O'Abdifatah-O'Carrion retractor was then placed within the abdominal cavity and the bowel was removed from the abdominal cavity and completely run from end to end. We determine the viability of the bowel. I then placed the patient in the frog-leg position and placed a Kimball in the bladder. I then changed gloves and gown and we were able to pack away the bowel with warm moist packs. The vaginal vault was grasped with Allis clamps and I closed the vaginal vault with a running 0 PDS suture. This was followed by an imbricating suture of 0 Vicryl suture. The pelvis was then rinsed well with saline and once again hemostasis was assured. I then elected to place a large piece of Surgicel at the vaginal vault. The retractors and sponges were removed. The peritoneum was closed with running 2-0 Vicryl suture. The rectus muscles then closed with running 0 Vicryl suture. The fascia was closed with running #1 Vicryl suture. There was quite a bit of scar tissue along the incision and we elected to undermine some of the scar to free up the skin. The subcutaneous tissues were then irrigated with warm water. Carolann's fascia was closed using running 2-0 Monocryl suture. The skin was closed with rita. I then washed the skin incision with Hibiclens. Sterile dressings were applied. She tolerated the procedure well and was taken to the recovery room in excellent condition. All sponge, instrument counts and needle counts were correct. The estimated blood loss was less than 50 cc. Condition: stable Disposition: PACU Specimens:: None Complications::
--- NOTE | 2020-01-10 07:50 | HMH.ANESI ---
[facility] Anesthesia Record Part I Intake, IV Amount: 700 Estimated blood loss (mL): 50 Urine output (mL): 700 Blood Products used (#): none Blood Pressure: 127/75 SaO2: 96 Pulse Rate: 82 Respiratory Rate: 16 Temperature: 97.6 F Patient is:: Awake, Drowsy, Stable Stable to PACU at:: 07:45
[2020-01-10 07:56] LABS: Microscopic,Cath URINE MICROSCOPIC (MICROSCOPIC)
[2020-01-10 07:58] LABS: Appearance,Urine/Cath CLEAR (Clear); Bilirubin,Cath Negative (Negative); Blood, Urine/Cath 1+ (Negative); Color,Urine/Cath YELLOW (Yellow); Glucose,Urine/Cath (UA) Negative (Negative); Ketones,Urine/Cath Negative (Negative); Leukocyte Esterase,Cath Negative (Negative); Nitrate,Cath Negative (Negative); Protein,Urine/Cath Negative (Negative); Specific Gravity, Urine/Cath <= 1.005 (1.005-1.030); Urobilinogen,Cath 0.2 EU/dl (0.2)
[2020-01-10 08:05] LABS: Squamous Epithelial Ur./Cath Occasional #/hpf (0-5)
--- NOTE | 2020-01-10 08:32 | PC.NURSE ---
Report received from Jazzy Garcia RN.
--- NOTE | 2020-01-10 08:46 | PC.NURSE ---
Pt. O2 sats at 89% on RA, 2L O2 applied via NC. O2 sats up to 95%.
--- NOTE | 2020-01-10 09:09 | PC.NURSE ---
Addendum entered by Joaquina Russo RN 01/10/20 09:10: pt. arrived at 0845 Original Note: Pt. arrived to room 279 in bed, with x2 staff.
--- NOTE | 2020-01-10 11:16 | PC.NURSE ---
09:46 - Routine assessment completed. Lungs CTA, Heart at RR, BS present x4 quad. LTV dressing noted to have scant amount of serosanguineous drainage. No edema noted, Pt. resting in bed, with eyes closed, will continue to monitor.
--- NOTE | 2020-01-10 11:20 | PC.NURSE ---
ABD binder placed on pt. at this time. pillow provided for bracing abd when needing to cough. Pt. educated on bracing. Pt. denies needs, will continue to monitor.
--- NOTE | 2020-01-10 12:17 | HMH.PHAVTE ---
[facility] Pharmacy VTE Monitoring - Patient Demographics Admission date: 01/10/20 Report Date: 01/10/20 Time: 12:18 Allergies/Adverse Reactions: Patient Allergies No Known Allergies Allergy (Verified 01/04/20 11:36) Height: 1.6 m Weight: 54.431 kg Patient Problems: Current Active Problems Dehiscence of vaginal cuff (Acute) Pneumoperitoneum (Acute) - VTE Risk Labs: VTE Related Lab Results Hgb 13.7 g/dL (12.2-16.2) 01/10/20 03:55 Hct 40.8 % (37.0-47.0) 01/10/20 03:55 Plt Count 383 K/mm3 (142-424) 01/10/20 03:55 BUN 16 mg/dl (7-17) 01/10/20 03:55 Creatinine 0.60 mg/dl (0.52-1.04) 01/10/20 03:55 Estimated Creat Clear 109 mL/min (50-200) 01/10/20 03:55 - Prophylaxis VTE Prophylaxis Ordered?: Yes Types of VTE Prophylaxis: IPCS Thigh High Location of Applied Device: Bilateral Lower Extremeties
--- NOTE | 2020-01-10 12:25 | HMH.PHAINT ---
MEDICATION RECONCILIATION COMPLETED ON PATIENT USING EXTERNAL FILL HISTORY FROM PHARMACY AND DISCHARGE SUMMARY FROM PREVIOUS ADMISSION. -GRACIE MENDOZAD
--- NOTE | 2020-01-10 18:23 | PC.NURSE ---
16:20 Late Entry - Routine reassessment completed. Pt. on RA. Dressing noted to Saturated with sanguineous drainage. No further acute changes. Lungs remain CTA, Heart at RR. BS present x4 Quad. Pt. reports pain at a tolerable level. Pt. denies needs, will continue to monitor.
--- NOTE | 2020-01-10 18:23 | PC.NURSE ---
17:55 Late Entry - Dressing changed at this time. incision site remains with edges approximated, and rita in tact. Site cleansed with 1/2 peroxide 1/2 sterile water solution. New T&T in place. Pt. tolerated well, reports pain at 6/10 in lower abdomen, see EMAR for medications given. Pt. denies further needs.
--- NOTE | 2020-01-10 19:50 | PC.NURSE ---
18:35 Dr. Pulido called for update on pt. Report given on dressing. Orders received to use ABD pads instead of telfa. order read back and verified.
--- NOTE | 2020-01-10 20:00 | PC.NURSE ---
ENCOURAGED PT TO COUGH AND DEEP BREATH,PT USING HER PILLOW TO SPLINT HER INCSION.PT ABLE TO ACHIEVE 1250 ON INCENTIVE SPIROMETER
--- NOTE | 2020-01-10 20:00 | PC.NURSE ---
Addendum entered by Marion Garcia RN 01/10/20 23:11: F/C DRAINING CLEAR YELLOW URINE IN TUBING ,BUT URINE IS DARK IN THE WU BAG,WILL CONTINUE TO MONITOR Original Note: PT'S LOW TRASVERSE ABD INCISION IS COVERED WITH TELFA AND TEGADERM,SMALL AMT.BLOOD NOTED.MARKED AND DATED.PT HAS AN ABD.BINDER ON FOR SUPPORT AND PRESSURE FOR THE DRESSING.POSITIVE BOWEL SOUNDS NOTED X4 QUADS,PT REPORTS FEELING GAS,MYLICON 160MG PO GIVEN,SHE REPORTS SOME PAIN A 4 ON SCALE OF 0-10,MEDICATED WITH MUMTAZ.TORADOL 30MG IV.AFTER ABOUT 20 MINS PAIN IS NOW A 3.TOLD HER THAT WOULD TRY SOME OXYCODONE NEXT SINCE IT MAY LAST LONGER FOR HER THAN MORPHINE AND SHE IS TOLERATED FOOD,PT V/U
--- NOTE | 2020-01-10 23:03 | PC.NURSE ---
UPON ENTERING ROOM PT WAS LAYING IN BED AWAKE,TOLD HER I HAD BROUGHT THE OXYCODONE AND HER ANCEF IN TO GIVE HER,SHE HAD NOT ASKED FOR ANYTHING FOR PAIN SINCE HER TORADOL WAS GIVEN AT 1937,PT REPORTED HER PAIN A 6 ON SCALE OF 0-10,ANCEF HUNG.F/C DRAINING CLEAR YELLOW URINE IN TUBING AND BAG,TOLD HER I WOULD LOOK AT HER DRESSING ONCE THE OXYCODONE STARTED WORKING AND SHE HAD ANOTHER ANTIBIOTIC DUE AFTER THIS ONE INFUSES,IN ABOUT 1/2 HOUR.PT V/U
--- NOTE | 2020-01-10 23:30 | PC.NURSE ---
UPON ENTERING ROOM PT WAS SLEEPING.EASILY AROUSED,STATES PAIN ABOUT A 5 NOW.GAVE PT SOME TYLENOL 650MG PO SINCE HER TEMP WAS 99.0.ABD.DRESSING WITHOUT ANY MORE DRAINAGE NOTED.FLAGYL HUNG AT THIS TIME.PT WITHOUT ANY NEEDS OR CONCERNS
[2020-01-11] VITALS (8 sets, daily range): BP systolic 91–109; BP diastolic 43–68; PULSE 52–85; RESP 16–20; TEMP 36.6–37; O2SAT 95–98
--- NOTE | 2020-01-11 02:22 | PC.NURSE ---
AROUND 2 WENT INTO ROOM TO GIVE PT HER MUMTAZ TORADOL AND SHE EASILY AROUSED ,REPORTED PAIN A 5 ON SCALE OF 0-10.PT DENIES PASSING AND FLATUS,SO MYLICON 160 MG PO GIVEN.ASKED PT IF SHE WAS WANTING TO HAVE HER OXY.AND TYLENOL AROUND 3-3:30 WHEN IT WAS DUE TO KEEP SOMETHING ON BOARD AND SHE SHE SAID YES.NO OTHER NEEDS OR CONCERNS VOICED
--- NOTE | 2020-01-11 04:02 | PC.NURSE ---
PT HAS SLEPT OFF AND ON ALL NIGHT,MEDICATED WITH OXYCODONE AND TYLENOL THIS MORNING AND SHE HAS BEEN GETTING MUMTAZ TORADOL 30MG IV.LUNGS CLEAR TO ASCULTATE ALL FRONT,RESP.EVEN AND UNLABORED.B/P-102/56,P-69.R-16,T-97.8,SAT LEVEL ON RA 97%.HYPER BOWEL SOUNDS X4 QUADS,PT DENIES PASSING ANY FLATUS,HAS HAD MYLICON A COUPLE TIMES TONIGHT.NO NEW DRAINAGE TO DRESSING,SMALL AMT OLD DRAINAGE.F/C DRAINING YELLOW URINE AT THIS TIME.PT WILL RECIEVE MORE ANCEF AND FLAGYL AROUND 0700,WILL CONTINUE TO MONITOR
[2020-01-11 06:00] LABS: Basophils % 0.2 % (0.1-2.0); Eosinophils # 0.1 K/mm3 (0.0-0.4); Eosinophils % 1.3 % (0.1-12.0); Hematocrit 31.7 % (37.0-47.0); Hemoglobin 10.4 g/dL (12.2-16.2); Lymphocytes # 2.5 K/mm3 (0.7-4.5); Lymphocytes % 22.6 % (10-50); Mean Corpuscular HGB Conc 32.8 g/dL (31.8-35.4); Mean Corpuscular Volume 91.5 fl (81-99); Mean Platelet Volume 8.9 fl (7.4-10.4); Monocytes # 0.4 K/mm3 (0.1-1.0); Neutrophils % 71.9 % (37.0-80.0); Platelet Count 263 K/mm3 (142-424); Red Blood Count 3.46 M/mm3 (4.20-5.40); Red Cell Distribution Width 13.6 % (11.5-17.5); White Blood Count 11.1 K/mm3 (4.8-10.8)
[2020-01-11 06:07] LABS: Chloride 107 mmol/L (98-107); Potassium 3.3 mmoL/L (3.5-5.1); Sodium 137 mmol/L (136-145)
[2020-01-11 06:10] LABS: Blood Urea Nitrogen 10 mg/dl (7-17); Creatinine Clearance Estimated 131 mL/min (50-200); Estimated Glomerular Filt Rate 138 ml/min (>60); GFR (African American) 167 ML/MIN (>60)
[2020-01-11 06:11] LABS: Anion Gap 4.3 mEq/L (5-15); Carbon Dioxide 29 mmol/L (22.0-30.0); Glucose 102 mg/dl (74-100)
[2020-01-11 06:22] LABS: Calcium 7.9 mg/dl (8.4-10.2)
--- NOTE | 2020-01-11 06:39 | P.PN_ITS ---
[facility] Anesthesia Record Part II Discharge Time: 08:15 Destination: Obstetric Gynecology Dept PACU nurse assessment reviewed?: Yes Patient Condition:: Good Anesthesia Complications:: None Swallowing reflex intact?: Yes Cyanosis?: No Blood Pressure: 103/61 Pulse Rate: 85 Temperature: 97.8 F Mental Status: Alert & Oriented Pain level:: 0 Nausea and/or vomitting:: Nauseated Intake, IV Amount: 0
--- NOTE | 2020-01-11 09:14 | PC.NURSE ---
DOCTOR HUI WENT TO ROUND ON PATIENT- PATIENT ASLEEP. STATES SHE WILL RETURN.
--- NOTE | 2020-01-11 10:55 | PC.NURSE ---
Kimball cath removed at this time and pt tolerated well. Told patient POC today and she is agreeable. will be getting patient up to bathroom in 30min-1 hour. Patient reports hurting all over, and states pressure on chest. oxygen saturations 95% on room air and resp. 18. Encouraged deep breathing and use of incentive jordyn. Low transverse incision remains unchanged. abd binder still in use. no further needs. provided fresh ice water.
--- NOTE | 2020-01-11 11:20 | PC.NURSE ---
patient ambulated to the restroom at this time. done very well. standby assist. Able to urinate.Mesh panties and pad provided. small red vaginal bleeding noted. scuds off at this time
--- NOTE | 2020-01-11 15:10 | PC.NURSE ---
LOW TRANSVERSE INCISION DRESSING CHANGED AT THIS TIME PER PROTOCOL. PATIENT TOLERATED WELL. NO S/S OF INFECTION NOTED. EDUCATION PROVIDED. APPLIED TELFA AND TEGARDERM. PT TOLERATED THIS WELL.
--- NOTE | 2020-01-11 15:50 | PC.NURSE ---
REASSESSMENT COMPLETED AT THIS TIME. NO CHANGES NOTED. LUNGS REMAIN CTA AND BOWEL SOUNDS ACTIVE X4. ENCOURAGING COUGHING AND DEEP BREATHING. ALSO INCENTIVE SPRIO. REPORTS PAIN NOW ON 05/28. PATIENT REPORTS BEING ABLE TO TOLERATE THIS. REPORTS SCANT VAGINAL BLEEDING WHEN WIPING. HAS NOT BEEN ABLE TO PASS GAS YET. PULSES 2+, AND DENIES NUMBNESS AND TINGLING. IV INFUSING WITHOUT DIFFICULTY. DRESSING TO LOW TRANSVERSE C/D/I. PATIENT RESTING IN BED AT THIS TIME. WILL CONT. TO MONITOR.
--- NOTE | 2020-01-11 17:12 | PC.NURSE ---
ROUNDED ON PATIENT- WENT IN TO PATIENTS ROOM. CRYING, STATING SHE IS HAVING STABBING PAINS IN HER RIGHT SIDE. MEDICATED PER MAR AND WILL GIVE GAS MEDICINE. DRESSING DRY. WILL CONTINUE TO CLOSELY MONITOR.
--- NOTE | 2020-01-11 17:30 | PC.NURSE ---
MD NOTIFIED OF PATIENTS PAIN. REPORTS TO ENCOURAGE BOWEL STIMULATING PRACTICES ( GUM CHEWING, STOOL SOFTENER, WALKING)
--- NOTE | 2020-01-11 18:29 | HMH.ACPN2 ---
Internal Medicine - PN: Subj *Date: 01/11/20 *Time: 18:29 Interval history: POD #1 exploratory laparotomy and repair of vaginal cuff after post-hysterectomy cuff dehiscence complaining of gas pain today but tolerating both liquid and solid po ambulating and voiding without difficulty Exam Vital signs and Labs for Last 24 Hours: Temp Pulse Resp BP Pulse Ox 98.5 F 52 L 18 109/66 L 98 01/11/20 16:00 01/11/20 16:00 01/11/20 16:00 01/11/20 16:00 01/11/20 16:00 Laboratory Results - last 24 hr 01/11/20 05:45: WBC 11.1 H D, RBC 3.46 L, Hgb 10.4 L, Hct 31.7 L, MCV 91.5, MCH 30.0, MCHC 32.8, RDW 13.6, Plt Count 263 D, MPV 8.9, Neut % (Auto) 71.9, Lymph % (Auto) 22.6, [place] % (Auto) 4.0, Eos % (Auto) 1.3, Baso % (Auto) 0.2, Neut # (Auto) 8.0 H, Lymph # (Auto) 2.5, [place] # (Auto) 0.4, Eos # (Auto) 0.1, Baso # (Auto) 0.0 01/11/20 05:45: Sodium 137, Potassium 3.3 L, Chloride 107, Carbon Dioxide 29, Anion Gap 4.3 L, BUN 10 D, Creatinine 0.50 L, Estimated Creat Clear 131, Estimated GFR 138, Est GFR ( Amer) 167 D, Glucose 102 H, Calcium 7.9 L D I & O for Last 24 hours: Intake & Output 01/09/20 01/10/20 01/11/20 01/12/20 11:59 11:59 11:59 11:59 Intake Total 700 / 700 1091 / 1091 Output Total 200 / 200 1250 / 1250 700 / 700 Balance 500 / 500 -159 / -159 -700 / -700 Weight 120 lb - Constitutional no acute distress - *Routine HEENT Exam Head: Present: normocephalic Eye: Absent: conjunctival icterus ENT: Present: mucous membranes moist - *Routine Neck Exam Present: supple. Absent: lymphadenopathy - *Routine Respiratory Exam Present: CTA bilaterally - *Routine Cardiovascular Exam Present: RRR - *Routine Abdominal Exam Present: soft, normoactive bowel sounds, tenderness. Absent: distended, guarding - *Routine Extremities Exam Absent: cyanosis, clubbing, edema - *Routine Skin Exam Present: warm. Absent: rash - *Routine Neurological Exam Present: alert, oriented X3 Assessment and Plan (1) Dehiscence of vaginal cuff Status: Acute Qualifiers: Encounter type: initial encounter Qualified Code(s): T81.31XA - Disruption of external operation (surgical) wound, not elsewhere classified, initial encounter Category: Medical Code(s): T81.31XA - Disruption of external operation (surgical) wound, not elsewhere classified, initial encounter (2) Pneumoperitoneum Status: Acute Category: Medical Code(s): K66.8 - Other specified disorders of peritoneum - Assessment and plan all Dx Assessment and Plan for all problems:: Routine postop care Mylicon and stool softeners PRN no clinical signs of ileus
--- NOTE | 2020-01-11 20:19 | PC.NURSE ---
PT WAS LAYING IN BED ASLEEP.ASSESSMENT DONE.LUNGS CLEAR,RESP,EVEN AND UNLABORED,STABLE V/S.HYPERACTIVE BOWEL SOUNDS X4 QUADS,DENIES PASSING ANY GAS ONLY BELCHING,VOIDING WITHOUT DIFF.DARK IN COLOR,SMALL AMT VAG.BLEEDING.NO DRAINAGE NOTED TO DRESSING.PAIN 4 ON PAIN SCALE OF 0-10,MEDICATED WITH MUMTAZ TORADOL 30MG IV
--- NOTE | 2020-01-11 23:00 | PC.NURSE ---
WENT IN TO [facility] AND PT WAS LAYING IN BED AWAKE,MEDICATED WITH OXYCODONE 10 AND TYLENOL 650MG FOR PAIN OF A 6 ON SCALE OF 0-10.MYLICON ALSO GIVEN.PT WENT TO BATHROOM AND VOIDED 100ML OF DARK YELLOW URINE.WILL CONTINUE TO MONITOR
[2020-01-12 04:00] VITALS: BP 98/67; PULSE 57; RESP 16; TEMP 36.8; O2SAT 95
--- NOTE | 2020-01-12 04:30 | PC.NURSE ---
PT HAS RESTED DURING THE NIGHT.PT HAS BEEN GETTING MUMTAZ.TORADOL AND OXYCODONE 10MG AND TYLENOL FOR PAIN.BOWEL SOUNDS NORMAL IN ALL 4 QUADS,NO DRAINAGE TO DRESSING,PT REPORTS SHE HAS PASSED GAS MAYBE ONCE AND BELCHED ONCE,REFUSED A SENNA THIS MORNING SAID THE ONES SHE TAKES AT HOME GIVE HER GAS..PT HAS VOIDED ONLY 200ML TONIGHT AND IT WAS DARK YELLOW.LUNGS CLEAR,RESP.EVEN AND UNLABORED.PT HAS BEEN GETTING ANCEF AND FLAGYL.PT AFIBRILE
[2020-01-12 08:00] VITALS: BP 122/57; PULSE 69; RESP 20; TEMP 36.7; O2SAT 100
--- NOTE | 2020-01-12 10:47 | HMH.ACPN2 ---
Internal Medicine - PN: Subj *Date: 01/12/20 *Time: 10:47 Interval history: POD #2 exploratory laparotomy with repair of vaginal cuff dehiscence Patient reports only minimal flatus, but continues to have normoactive bowel sounds No nausea/vomiting; tolerating PO Limited ambulation Labs and vital signs stable Exam Vital signs and Labs for Last 24 Hours: Temp Pulse Resp BP Pulse Ox 98.0 F 69 20 122/57 L 100 01/12/20 08:00 01/12/20 08:00 01/12/20 08:00 01/12/20 08:00 01/12/20 08:00 I & O for Last 24 hours: Intake & Output 01/09/20 01/10/20 01/11/20 01/12/20 11:59 11:59 11:59 11:59 Intake Total 700 / 700 1091 / 1091 1200 / 1200 Output Total 200 / 200 1250 / 1250 900 / 900 Balance 500 / 500 -159 / -159 300 / 300 Weight 120 lb Microbiology Reports for the Last 24 Hours: Microbiology 01/10/20 03:54 Blood Blood Culture - Preliminary NO GROWTH AFTER 48 HOURS 01/10/20 03:54 Blood Blood Culture - Preliminary NO GROWTH AFTER 48 HOURS Narrative: CONSTITUTIONAL: no acute distress HEENT: mucous membranes moist PULMONARY: breathing unlabored without audible wheezes CV: no tachycardia or visible JVD; normal LE peripheral pulses ABD: soft, ND; appropriately tender but no rebound/guarding. + bowel sounds SKIN: incision well approximated with no drainage, erythema or induration EXT: no edema LEs NEURO: alert/oriented, no altered mental status PSYCH: appropriate mood and demeanor without anxiety/depression Assessment and Plan (1) Dehiscence of vaginal cuff Status: Acute Qualifiers: Encounter type: initial encounter Qualified Code(s): T81.31XA - Disruption of external operation (surgical) wound, not elsewhere classified, initial encounter Category: Medical Code(s): T81.31XA - Disruption of external operation (surgical) wound, not elsewhere classified, initial encounter (2) Pneumoperitoneum Status: Acute Category: Medical Code(s): K66.8 - Other specified disorders of peritoneum - Assessment and plan all Dx Assessment and Plan for all problems:: Continue inpatient management Possible discharge home tomorrow Patient advised that she is at increased risk for postoperative ileus
[2020-01-12 15:14] VITALS: BP 119/58; PULSE 66; RESP 20; TEMP 36.7; O2SAT 100
--- NOTE | 2020-01-12 15:37 | PC.NURSE ---
REASSESSMENT COMPLETE. NO CHANGES NOTED. LUNGS REMAIN CTA AND BOWEL SOUNDS ACTIVE X4. ENCOURAGING COUGHING AND DEEP BREATHING AND I/S USE Q 1 HOUR WHILE AWAKE. REPORTS NO PAIN. REPORTS SCANT VAGINAL BLEEDING WHEN WIPING. HAS BEEN ABLE TO PASS GAS FREQUENTLY TODAY, HAS AMBULATED GOMEZ X1. ENCOURAGED TO WALK AGAIN LATER. PULSES 2+, AND DENIES NUMBNESS AND TINGLING. IV INFUSING WITHOUT DIFFICULTY VIA 20 GAUGE IN RIGHT AC. DRESSING TO LOW TRANSVERSE C/D/I. PATIENT RESTING IN BED AT THIS TIME. ABDOMINAL BINDER IN PLACE AND USING SMALL PILLOW TO SPLINT ABDOMEN.
--- NOTE | 2020-01-12 18:59 | PC.NURSE ---
report given to prince sainz rn and alex tee rn
[2020-01-12 20:00] VITALS: BP 113/68; PULSE 68; RESP 20; TEMP 36.9; O2SAT 96
[2020-01-13 04:00] VITALS: BP 120/70; PULSE 64; RESP 16; TEMP 37.1; O2SAT 95
--- NOTE | 2020-01-13 06:42 | PC.NURSE ---
pt has rested well throughout shift, pt alert and oriented, lungs remain clear, heart rate regular, bs x 4 quads, pt states she is passing gas but no bowel movement, good urine output clear yellow urine, dressing changed to low transverse incison cleaned with 1/2 strength ns and peroxide, rita remain intact no s/s of infection noted, pain managed with prn medication, no needs at this time
--- NOTE | 2020-01-13 07:17 | PC.NURSE ---
report given B Karan RN, Gaurav Mancera RN
--- NOTE | 2020-01-13 07:20 | PC.NURSE ---
Report received from Mi Ott RN.
[2020-01-13 08:00] VITALS: BP 119/68; PULSE 70; RESP 18; TEMP 36.8; O2SAT 97
--- NOTE | 2020-01-13 08:20 | PC.NURSE ---
Routine assessment completed. VSS. Pt. A&O x4, Lungs CTA, Heart at RR. BS present x4, pt. reports passing some flatus. LTV incision with T&T is C/D/I. Pt. reports pain down to 3/10. Pt. denies needs, will continue to monitor.
--- NOTE | 2020-01-13 09:20 | HMH.ACPN ---
Internal Medicine - PN: Subj *Date: 01/13/20 *Time: 09:20 Exam Vital signs and Labs for Last 24 Hours: Temp Pulse Resp BP Pulse Ox 98.3 F 70 18 119/68 97 01/13/20 08:00 01/13/20 08:00 01/13/20 08:00 01/13/20 08:00 01/13/20 08:00 I & O for Last 24 hours: Intake & Output 01/10/20 01/11/20 01/12/20 01/13/20 23:59 23:59 23:59 23:59 Intake Total 1791 / 1791 0 / 0 2700 / 2700 Output Total 800 / 800 1450 / 1450 1500 / 1500 1300 / 1300 Balance 991 / 991 -1450 / -1450 1200 / 1200 -1300 / -1300 Weight 54.431 kg Assessment and Plan (1) Dehiscence of vaginal cuff Status: Acute Qualifiers: Encounter type: initial encounter Qualified Code(s): T81.31XA - Disruption of external operation (surgical) wound, not elsewhere classified, initial encounter Category: Medical Code(s): T81.31XA - Disruption of external operation (surgical) wound, not elsewhere classified, initial encounter (2) Pneumoperitoneum Status: Acute Category: Medical Code(s): K66.8 - Other specified disorders of peritoneum The patient's infection will respond to the chosen ABx?: Yes Is the patient receiving the right drug, dose, and route?: Yes Could a more targeted ABx be ordered?: No
--- NOTE | 2020-01-13 12:52 | P.DS_ITS ---
General - General Admission date:: 01/10/20 Discharge date: 01/13/20 Hospital Course Hospital Course: Patient presented almost 9 weeks postop after hysterectomy with acute dehiscence of vaginal cuff She was taken to the OR for evaluation and repair of vaginal cuff; general surgery consult also evaluated small bowel with no injury identified Postop course has been uneventful She is ambulating and voiding without difficulty she is tolerating regular diet and has had normal bowel sounds she is discharged home on POD #3 in stable condition and will f/u in office for incision check on 01/26/20 Objective Vital signs: Temp Pulse Resp BP Pulse Ox 98.3 F 70 18 119/68 97 01/13/20 08:00 01/13/20 08:00 01/13/20 08:00 01/13/20 08:00 01/13/20 08:00 Narrative: CONSTITUTIONAL: no acute distress HEENT: mucous membranes moist PULMONARY: breathing unlabored without audible wheezes CV: no tachycardia or visible JVD; normal LE peripheral pulses ABD: soft, ND; appropriately tender but no rebound/guarding SKIN: incision well approximated with no drainage, erythema or induration EXT: no edema LEs NEURO: alert/oriented, no altered mental status PSYCH: appropriate mood and demeanor Results Labs on day of discharge: Preliminary micro results at discharge 01/10/20 03:54 Blood Culture - Preliminary Blood NO GROWTH AFTER 48 HOURS 01/10/20 03:54 Blood Culture - Preliminary Blood NO GROWTH AFTER 48 HOURS DS: Diagnosis - Discharge Diagnosis (1) Dehiscence of vaginal cuff Status: Acute (2) Pneumoperitoneum Status: Acute Discharge Plan - Patient Discharge Instructions ACTIVITY: Continue current activity DIET: regular diet Additional Instructions: No heavy Lifting/strenuous activity, Nothing in the Vagina for 6 weeks. Patient Instructions: How to Care for a Surgical Wound, DI for Wound Dehiscence, DI for Surgical Site Infection, Preventing the Spread of Coronavirus Discharge Instructions - Follow up Plan Follow up with: Wandy Kohler [Primary Care Provider] - Disposition: Home, Self-Nursing Home Medications: Home Medications Medication Instructions Recorded Confirmed Type duloxetine 30 mg capsule,delayed 60 mg PO DAILY cap 01/04/20 01/10/20 History release Duloxetine HCl [Cymbalta] 30 mg PO HS 01/10/20 01/10/20 History Oxycodone HCl [OxyIR 5mg tablet] 5 mg PO Q4HP PRN #24 tablet 01/13/20 Rx Prescriptions/Medication Reconciliation: New Acetaminophen [Acetaminophen 325mg tab] 650 mg PO Q4HP PRN tablet PRN Reason: Mild Pain Oxycodone HCl [OxyIR 5mg tablet] 5 mg PO Q4HP PRN #24 tablet PRN Reason: Moderate To Severe Pain Continued duloxetine 30 mg capsule,delayed release 60 mg PO DAILY cap Duloxetine HCl [Cymbalta] 30 mg PO HS - Problem Reconciliation Problems Reviewed?: Yes
--- NOTE | 2020-01-13 14:11 | PC.NURSE ---
1400 dr sarabia notified that incision seperating with first two rita removed. ordered to continue with discharge. leave rita in place. to have rita removed saturday here at hospital
--- NOTE | 2020-01-16 13:48 | PC.NURSE ---
rita removed at this time, site cleansed with 1/2 strength peroxide. steri-strips applied with mastisol. pt tolerated well
== END 2020-01-13 14:05 | disposition home or self-care (01) | DRG 909 ==
LOC: ER 06:26 → SDC 06:28 → OB 06:51
PROVIDERS: Admitting Provider Nurse Practitioner Obstetrics & Gynecology; Emergency Provider Emergency Medicine; PCP General Practice; Visit Provider Obstetrics & Gynecology
PROC: 0DS80ZZ Reposition Small Intestine, Open Approach (ICD-10-PCS; principal; 2020-01-10 06:30)
DX: T81.32XA Disruption of internal operation (surgical) wound, not elsewhere classified, initial encounter (principal); Z72.0 Tobacco use; K63.4 Enteroptosis
CPT/HCPCS: 57284; 36415; 74177; 80048; 80053; 81001; 83605; 85007; 85025; 85651; 86140; 86328; 87040; 94761; 96365; 96375; 99284; J0330; J2405; Q9967